=== PATIENT | male | born 1950 | race Caucasian/White ===

== ENCOUNTER 2020-01-16 18:09 | Emergency (ER) | payer OTHER, SELFPAY ==
--- NOTE | 2020-01-16 18:18 | ED.GENADULT ---
HPI - General Adult General Chief complaint: Skin/Abscess/Foreign Body Stated complaint: insect bite Time Seen by Provider: 01/16/20 18:24 Source: patient and RN notes reviewed Mode of arrival: ambulatory Limitations: no limitations History of Present Illness HPI narrative: This is a 69 years old male presents to the office for an evaluation of insect bite while he was sitting outside yesterday. He felt a bite; but he did not see what it was. He thinks it is either the mosquito or gnats that got him. He was not outside in the [place] or on the grass. TD is unknown. He has been taking a couple doses of benedryl today. Related Data Allergies Allergy/AdvReac Type Severity Reaction Status Date / Time Sulfa (Sulfonamide Allergy Unknown Rash Verified 01/16/20 18:25 Antibiotics) Review of Systems Review of Systems: Narrative: CONSTITUTIONAL: Denies fever or feeling ill ENT: Denies congestion CARDIOVASCULAR: Denies chest pain RESPIRATORY: Denies dyspnea GASTROINTESTINAL: Denies nausea, vomiting SKIN:Reports left forearm insect bite with redness and swelling MUSCULOSKELETAL: Denies acute back pain NEUROLOGIC: Denies lightheaded PMFSH Past Medical History Medical History (Updated 01/16/20 @ 18:38 by MEDINA Norris) Lumbar spondylosis Memory loss Surgical History Surgical History (Updated 01/16/20 @ 18:25 by MEDINA Norris) Hx of appendectomy Social History Social History Smoking status: Never smoker Alcohol intake: never Gender identity (if verbalized by the patient): Male Comments At time of signature, I agree with nursing past medical, surgical, social and family history. There is no relevant family history pertinent to the presenting complaint. Exam Narrative: Exam Narrative: GENERAL: This is a well-nourished, well-developed patient, in no apparent distress. CARDIOVASCULAR: Regular rate and rhythm without murmurs, gallops, or rubs. RESPIRATORY: Clear to auscultation. Breath sounds equal bilaterally. No wheezes, rales, or rhonchi. GASTROINTESTINAL: Abdomen soft, non-tender, nondistended. Bowel sounds are active. No guarding. NEURO: awake, alert, and oriented to person, place and time. There were no obvious focal neurologic abnormalities. Steady gait EXTREMITIES: Normal range of motion. Left anterior forearm noted a localize erythema, edematous, blanchable without obvious bite harriet or secondary cellulitis. No lymphadenitis. [place] Coma Scale Eye Opening: Spontaneous 4 [place] Coma Scale Motor: Obeys Commands 6 [place] Coma Scale Verbal: Oriented 5 Course Vital Signs Vital signs: Vital Signs Temperature 97.6 F 01/16/20 18:19 Pulse Rate 70 01/16/20 18:19 Respiratory Rate 16 01/16/20 18:19 Blood Pressure 145/92 H 01/16/20 18:19 Pulse Oximetry 99 01/16/20 18:19 Temperature 97.6 F 01/16/20 18:19 Pulse Rate 70 01/16/20 18:19 Respiratory Rate 16 01/16/20 18:19 Blood Pressure 145/92 H 01/16/20 18:19 Pulse Oximetry 99 01/16/20 18:19 Medical Decision Making MDM Narrative Medical decision making narrative: Patient is Urgent/Emergent. BP elevated due to current condition w/o HTN in PMH (Measure Met). Discharge instructions reviewed with patient, as well as provided in writing per nursing staff. The instructions also include specific and strict return/GO TO THE ER as well as f/u information. All questions have been answered, and the patient deny any further questions with discharge and discharge plan. Differential Diagnosis Differential Diagnosis: Contact/allergic dermatitis, atopic dermatitis, psoriasis, eczema, cellulitis, tinea, erythema multiforme Vital Signs Vital Signs: Vital Signs Temperature 97.6 F 01/16/20 18:19 Pulse Rate 70 01/16/20 18:19 Respiratory Rate 16 01/16/20 18:19 Blood Pressure 145/92 H 01/16/20 18:19 Pulse Oximetry 99 01/16/20 18:19 Temperature
[2020-01-16 18:19] VITALS: BP 145/92; PULSE 70; RESP 16; TEMP 36.4; O2SAT 99
[2020-01-16] MEDS: TETANUS,DIPHTHERIA,AC PERTUSSIS ADULT (0.5 ML) BOOSTRIX IM (18:38)
== END 2020-01-16 18:53 | disposition home or self-care (01) ==
PROVIDERS: Emergency Provider Nurse Practitioner; PCP Family Medicine
DX: S50.862A Insect bite (nonvenomous) of left forearm, initial encounter (principal); W57.XXXA Bitten or stung by nonvenomous insect and other nonvenomous arthropods, initial encounter; Z23 Encounter for immunization
CPT/HCPCS: 90471; 90715; 99213; G0463

== ENCOUNTER 2021-01-06 08:08 | Emergency (ER) | payer OTHER, SELFPAY ==
[2021-01-06 08:25] VITALS: BP 151/75; PULSE 73; RESP 16; TEMP 36.1; O2SAT 98
--- NOTE | 2021-01-06 08:45 | ED.GENADULT ---
HPI - General Adult General Chief complaint: Eye Problems Stated complaint: right eye swollen Time Seen by Provider: 01/06/21 08:16 Source: patient Mode of arrival: ambulatory Limitations: no limitations History of Present Illness HPI narrative: Patient presents for evaluation of swelling to the right upper eyelid since yesterday. He indicates he was fishing 3 days ago and experienced some gnat bites to the left side of the face. He had some left-sided facial swelling but that resolved with some Benadryl. Yesterday he was fishing again and states he was bit by another gnat in right upper eyelid. He developed swelling to the right upper eyelid thereafter. Took some low dose Benadryl last evening, but has not taken any today. Denies any visual disturbance. No fever, chills, nausea, vomiting. No drainage from the right eye. He is not diabetic. Related Data Home Medications Medication Instructions Recorded Confirmed ciprofloxacin HCl 1 mg PO BID 01/06/21 01/06/21 Allergies Allergy/AdvReac Type Severity Reaction Status Date / Time Sulfa (Sulfonamide Allergy Unknown Rash Verified 01/06/21 08:49 Antibiotics) Review of Systems Review of Systems: Narrative: CONSTITUTIONAL: Denies fever, chills, or sweats. EYES: Reports swelling of the right upper eyelid. Denies visual changes, redness, or discharge. ENT: Denies rhinorrhea, congestion, sore throat, or otalgia. CARDIOVASCULAR: Denies chest pain, palpitations, or edema. RESPIRATORY: Denies cough or dyspnea. GASTROINTESTINAL: Denies abdominal pain, nausea, vomiting, or diarrhea. GENITOURINARY: Denies dysuria or hematuria. SKIN: Denies rash or itching. MUSCULOSKELETAL: Denies back pain, joint pain, or myalgia. NEUROLOGIC: Denies headache, numbness, dizziness, or weakness. PSYCHIATRIC: Denies anxiety or depression. [facility] Past Medical History Medical History BMI 25.0-25.9,adult Colon polyp Lumbar spondylosis Memory loss Surgical History Surgical History Hx of appendectomy Family History Family History Mother No pertinent past medical history Social History Social History Smoking status: Never smoker Alcohol intake: never Gender identity (if verbalized by the patient): Male Exam Narrative: Exam Narrative: GENERAL: Well-appearing, well-nourished, and in no acute distress. HEAD: Normocephalic, atraumatic. EYES: PERRLA and EOMI. Swelling noted to right upper eyelid ENT: Nares clear, no rhinorrhea or epistaxis. Mucous membranes moist. Oropharynx without tonsillar hypertrophy exudate or other lesions. Bilateral TMs pearly abrams nonbulging NECK: Supple. No adenopathy or masses. No carotid bruits or JVD CHEST: Clear to auscultation. No respiratory distress. No wheezes rales or rhonchi HEART: Regular rate and rhythm. No murmur heard. Normal peripheral pulses. ABDOMEN: Soft, nontender, nondistended, normal active bowel sounds. EXTREMITIES: Normal range of motion. No edema. SKIN: Mild erythema noted to the right upper eyelid without associated warmth. Skin is dry, no rash. NEURO: No focal deficits. Alert and oriented x3. PSYCH: Normal mood and affect. Course Course Emergency Course: This is a 70-year-old male who presents with swelling to the right upper eyelid after he was bit by an at yesterday. He is taking some low-dose Benadryl with some improvement in his symptoms or after. His physical exam is consistent with allergic reaction. It does not appear that he has any cellulitis present, as there is no warmth in the area. He was given solumedrol during his visit. Will dc with prednisone and benadryl. Will also cover with keflex in event he develops infectious process. He was advised on importance of returning for wors
[2021-01-06] MEDS: methylPREDNISolone SOD SUCC 125 MG VIAL IM (08:53)
== END 2021-01-06 09:10 | disposition home or self-care (01) ==
PROVIDERS: Emergency Provider Nurse Practitioner
DX: H02.841 Edema of right upper eyelid (principal); T78.49XA Other allergy, initial encounter; W57.XXXA Bitten or stung by nonvenomous insect and other nonvenomous arthropods, initial encounter; M47.816 Spondylosis without myelopathy or radiculopathy, lumbar region
CPT/HCPCS: 96372; 99213; G0463; J2930

== ENCOUNTER 2021-07-11 09:38 | Emergency (ER) | payer OTHER, SELFPAY ==
[2021-07-11 09:55] VITALS: BP 127/81; PULSE 109; RESP 16; TEMP 37.3; O2SAT 98
--- NOTE | 2021-07-11 10:05 | ED.MALEGU ---
HPI - Male Genitourinary General Chief complaint: Urogenital-Male Stated complaint: uti Time Seen by Provider: 07/11/21 10:05 Source: patient Mode of arrival: ambulatory Limitations: no limitations History of Present Illness HPI Narrative: Davis Tse is a 71 yo male with a PMH of hypertension resulting in him self catheterizing himself 2-3 times a day. He noted that his urine became cloudy about 2 days ago, he has been on 2 rounds of Macrobid and recent months and is here for an additional antibiotic. He normally only gets UTIs every couple months with a self-catheterization and sees urologist regularly. No nausea vomiting diarrhea no fever Related Data Allergies Allergy/AdvReac Type Severity Reaction Status Date / Time Sulfa (Sulfonamide Allergy Unknown Rash Verified 01/06/21 08:49 Antibiotics) Review of Systems Review of Systems: CONSTITUTIONAL: Denies fever, chills, sweats. EYES: Denies visual changes, redness, discharge. ENT: Denies rhinorrhea, congestion, sore throat, otalgia. CARDIOVASCULAR: Denies chest pain, palpitations, edema. RESPIRATORY: Denies dyspnea, wheezing, cough GASTROINTESTINAL: Denies abdominal pain, nausea, vomiting, diarrhea. GENITOURINARY: Denies dysuria, hematuria, abnormal discharge-self catheterizing, urine is cloudy SKIN: Denies rash or itching. NEUROLOGIC: Denies numbness, or focal weakness. PSYCHIATRIC: Denies anxiety or depression. PMFSH Past Medical History Medical History BMI 25.0-25.9,adult Colon polyp Lumbar spondylosis Memory loss Urinary retention Surgical History Surgical History Hx of appendectomy Family History Family History Mother No pertinent past medical history Social History Social History Smoking status: Never smoker Alcohol intake: never Gender identity (if verbalized by the patient): Male Comments At time of signature, I agree with nursing past medical, surgical, social and family history. There is no relevant family history pertinent to the presenting complaint. Exam Narrative: GENERAL: This is a well-nourished, well-developed patient, in mild distress. HEAD: normocephalic, atraumatic. EYES: Sclera clear/white. Vision is grossly intact. EARS: External ears normal, . Hearing grossly intact. NOSE: External nose normal without nasal discharge, nares without redness, no rhinorrhea. THROAT: Mucous membranes moist, NECK: Neck supple, CARDIOVASCULAR: Regular rate and rhythm without murmurs, gallops, or rubs. RESPIRATORY: Clear to auscultation. Breath sounds equal bilaterally. No wheezes, rales, or rhonchi. GASTROINTESTINAL: Abdomen soft, SKIN: warm, intact with no suspicious lesions or rash, good texture and turgor. NEURO: awake, alert, and oriented to person, place and time. There were no obvious focal neurologic abnormalities. Steady gait EXTREMITIES: Normal range of motion. BACK: Nontender without deformity Course Course Emergency Course: Patient here due to cloudy urine when self cathing UA shows positive nitrite, 3+ leukocytes, 1+ ketones, 2+ blood, 1+ protein Started on cephalexin 500 mg 1 twice daily x5 days-to call [facility] Tuesday Vital Signs Vital signs: Vital Signs Temperature 99.2 F 07/11/21 09:55 Pulse Rate 109 H 07/11/21 09:55 Respiratory Rate 16 07/11/21 09:55 Blood Pressure 127/81 07/11/21 09:55 Pulse Oximetry 98 07/11/21 09:55 Temperature 99.2 F 07/11/21 09:55 Pulse Rate 109 H 07/11/21 09:55 Respiratory Rate 16 07/11/21 09:55 Blood Pressure 127/81 07/11/21 09:55 Pulse Oximetry 98 07/11/21 09:55 MDM - Male Genitourinary Differential Diagnosis Differential diagnosis: Likely urinary tract infection, urethritis, prostatitis, acute retention of urine and other [place]
== END 2021-07-11 10:12 | disposition home or self-care (01) ==
PROVIDERS: Emergency Provider Nurse Practitioner; PCP Family Medicine
DX: N39.0 Urinary tract infection, site not specified (principal); I10 Essential (primary) hypertension; M47.816 Spondylosis without myelopathy or radiculopathy, lumbar region
CPT/HCPCS: 81003; 87077; 87086; 87088; 87186; 99213; G0463

== ENCOUNTER 2022-04-04 10:08 | Emergency (ER) | payer OTHER, SELFPAY ==
--- NOTE | 2022-04-04 10:10 | ED.MALEGU ---
HPI - Male Genitourinary General Chief complaint: Urogenital-Male Stated complaint: urine irritation Time Seen by Provider: 04/04/22 10:10 Source: patient Mode of arrival: ambulatory Limitations: no limitations History of Present Illness HPI Narrative: Mr. Tse is a 71-year-old male patient presenting to the clinic today with complaints of urine irritation. He reports he self caths. Over the last few days he has had some bladder spasms and urinary symptoms. He thinks he may have a urinary tract infection. He denies any fever or chills. He denies any abdominal pain or back pain Related Data Home Medications Medication Instructions Recorded Confirmed loratadine 10 mg tablet (Claritin) 10 mg PO DAILY 04/04/22 04/04/22 Allergies Allergy/AdvReac Type Severity Reaction Status Date / Time Sulfa (Sulfonamide Allergy Unknown Rash Verified 04/04/22 10:20 Antibiotics) promethazine [From Phenergan] Allergy Other Verified 04/04/22 10:20 Review of Systems Review of Systems: Pertinent positives per HPI. Patient denies any fever, chills, rash, headache, visual changes, dizziness, cough, runny nose, sore throat, shortness of breath, chest pain, palpitations, nausea, vomiting, diarrhea, constipation, or any abdominal pain. PMFSH Past Medical History Medical History BMI 25.0-25.9,adult Colon polyp Lumbar spondylosis Memory loss Neurogenic bladder Recurrent urinary tract infection Urinary retention Surgical History Surgical History Hx of appendectomy Family History Family History Mother No pertinent past medical history Social History Social History Smoking status: Never smoker Alcohol intake: never Gender identity (if verbalized by the patient): Male Comments At the time of my signature, I reviewed and agree with the nursing past medical, surgical, social, and family history. There is no relevant family history pertinent to the patient complaint. Exam Narrative: General: Well-developed, well nourished, in no apparent distress. Head: Normocephalic, atraumatic. Cardio: Regular rate and rhythm, s1 and s2 normal, no murmur appreciated. Resp: Clear to auscultation bilaterally, no rhonchi, rales, wheezing or rubs. Abdomen: Soft, pliable, bowel sounds present in all quadrants, mild-tender to palpation over the suprapubic area, no organomegly, no CVAT tenderness. : Deferred Course Course Emergency Course: Portions of this record may have been created with voice recognition software. Level of Care: Express Care Visit Vital Signs Vital signs: Vital signs reviewed MDM - Male Genitourinary MDM Narrative Medical decision making narrative: At the time of visit patient is resting comfortably on the exam table. Patient self cath for UA today. UA positive for 3+ leukocytes and blood. I suspect patient has a urinary tract infection and will place patient on a prescription for some ciprofloxacin as this has been susceptible to his past culture and sensitivities. Patient has been on Cipro before without any adverse reactions. Supportive measures were discussed with the patient he voiced understanding of discharge instructions and agrees to treatment plan. Differential Diagnosis Differential diagnosis: Likely urinary tract infection and urethritis Discharge Plan Discharge Clinical Impression: Recurrent urinary tract infection Patient Disposition: Home, Self-Care Condition: Stable Instructions: Antibiotic Form, Urinary Tract Infection in Older Adults (ED) Additional Instructions: Take cipro as prescribed. Increase fluids and stay well hydrated Wipe front to back. May use wet wipes. Avoid tub baths If sexually active- pee before and afte
[2022-04-04 10:20] VITALS: BP 136/82; PULSE 95; RESP 18; TEMP 36.2; O2SAT 97
== END 2022-04-04 10:35 | disposition home or self-care (01) ==
LOC: EXPCOLL 10:11
PROVIDERS: Emergency Provider Nurse Practitioner Family
DX: N39.0 Urinary tract infection, site not specified (principal); N31.9 Neuromuscular dysfunction of bladder, unspecified; M47.816 Spondylosis without myelopathy or radiculopathy, lumbar region
CPT/HCPCS: 81003; 87077; 87086; 87186; 99213; G0463

== ENCOUNTER 2022-11-18 08:00 | Outpatient (NON) | payer OTHER, SELFPAY | END 2022-11-18 08:01 | disposition home or self-care (01) | LOC: ANHLAB 11-19 10:31 | PROVIDERS: PCP Family Medicine; Visit Provider Nurse Practitioner | DX: L57.8 Other skin changes due to chronic exposure to nonionizing radiation (principal) | CPT/HCPCS: 88305 ==

== ENCOUNTER 2023-04-23 08:39 | Inpatient (IN) | payer OTHER, SELFPAY ==
[2023-04-23] VITALS (15 sets, daily range): BP systolic 118–139; BP diastolic 65–83; PULSE 52–78; RESP 13–19; TEMP 36.3–36.8; O2SAT 96–100; BMI 24.7
--- NOTE | ~2023-04-23 | XR_ITS ---
EXAMINATION: XR chest 2V DATE: 04/23/2023 09:27 INDICATION: Stroke symptoms TECHNIQUE: Frontal and lateral views of the chest are obtained COMPARISON: None available FINDINGS: The lungs are free of acute opacities. No pleural effusion or pneumothorax. The cardiomedia stinal silhouette is normal. There is mild thoracic spondylosis. IMPRESSION: 1. No acute cardiopulmonary abnormality. Reviewed, dictated and finalized at location A.
--- NOTE | ~2023-04-23 | CT_ITS ---
EXAMINATION: CTA brain carotid DATE: 04/23/2023 11:02 INDICATION: Right upper extremity weakness TECHNIQUE: Computed tomographic angiography (CTA) of the head was performed with 100 mL Omnipaque-350 intravenous contrast. CTA of the neck was performed with intravenous contrast. The dose-length produ ct was 1224.01 mGy-cm. Maximum intensity projection and volume rendered 3D-reconstructions were creat ed by the technologist on a separate workstation. Automated exposure control and iterative reconstruc tion technique were employed. COMPARISON: 0916 hours FINDINGS: HEAD CTA: There is no acute intraparenchymal hemorrhage. No evidence of mass lesion. Again noted is l ow attenuation in the left basal ganglia and guardado radiata. There is mild periventricular and subcor tical hypodensity probably related to small vessel ischemic disease. There is mild prominence of the sulci and ventricles related to cerebral atrophy. Intracranial calcified cerebral atherosclerosis is noted. There are no extra-axial collections. There is no mass effect or midline shift. Changes in the globes are likely from ocular lens surgery. There is a polyp or mucous retention cyst of the left ma xillary sinus. There is no significant stenosis of the basilar artery or posterior cerebral arteries. There is no si gnificant stenosis of the intracranial internal carotid arteries or the anterior or middle cerebral a rteries. The anterior communicating artery and posterior communicating arteries are normal. There is no aneurysm. NECK CTA: The thyroid gland is unremarkable. The submandibular and parotid glands are symmetric. Ther e is no lymphadenopathy. There are no masses identified. The airway is unremarkable. The superior med iastinum is unremarkable. There is mild cervical spondylosis. There is moderate distention of the karime tebral and posterior cervical veins of unclear etiology. There is 0% stenosis of the proximal right internal carotid artery relative to normal distal artery l umen diameter (NASCET criteria). There is 0% stenosis of the proximal left internal carotid artery re lative to normal distal artery lumen diameter. IMPRESSION: 1. Findings consistent with acute infarct in the left basal ganglia and guardado radiata. Normal head C TA. 2. 0% stenosis of the proximal right internal carotid artery relative to normal distal artery lumen d iameter (NASCET criteria). 3. 0% stenosis of the proximal left internal carotid artery relative to normal distal artery lumen di ameter. Reviewed, dictated and finalized at location A. IMPRESSION: 1. Findings consistent with acute infarct in the left basal ganglia and guardado radiata. Normal head CTA. 2. 0% stenosis of the proximal right internal carotid artery relative to normal distal artery lumen diameter (NASCET criteria). 3. 0% stenosis of the proximal left internal carotid artery relative to normal distal artery lumen diameter.
--- NOTE | ~2023-04-23 | CT_ITS ---
EXAMINATION: CT brain wo con INDICATION: Headache COMPARISON: None TECHNIQUE: Standard unenhanced head CT. The dose-length product (DLP) was 605.33 mGy-cm. The mA was a djusted according to patient size. Iterative reconstruction technique was employed. FINDINGS: No acute intraparenchymal hemorrhage. No evidence of mass lesion. There is low attenuation in the left basal ganglia and left guardado radiata. There is mild periventricular and subcortical hypo density probably related to small vessel ischemic disease. There is mild prominence of the sulci and ventricles related to cerebral atrophy. Intracranial calcified cerebral atherosclerosis is noted. No extra-axial collections. No mass effect or midline shift. Changes in the globes are likely from ocula r lens surgery. The visualized sinuses and mastoid air cells are well aerated. IMPRESSION: 1. Findings consistent with acute infarction of the left basal ganglia and guardado radiata. 2. Age related findings. These findings were discussed with Dr. Joe Hernandez MD in the Emergency Department at 0934 hour s on 04/23/2023. Reviewed, dictated and finalized at location A. IMPRESSION: 1. Findings consistent with acute infarction of the left basal ganglia and mishel na radiata. 2. Age related findings. These findings were discussed with Dr. Joe Hernandez MD in the Emergency D epartment at 0934 hours on 04/23/2023.
--- NOTE | ~2023-04-23 | MR_ITS ---
MRI of the brain Clinical History: CVA Technique: Axial and sagittal T1-weighted images were acquired. These were followed by axial T2-weigh bobby, diffusion weighted, gradient, and FLAIR images. Following intravenous administration of 15 cc Mu ltiHance gadolinium, T1-weighted fat-sat imaging was performed in the axial, coronal, and sagittal pl anes. Findings: There is acute to subacute infarct involving the left basal ganglia and left caudate nucleu s, with restricted diffusion and FLAIR hyperintensity. There is hypointensity within the infarct on g radient images, as well as intrinsic T1 hyperintensity within the infarct, consistent with petechial hemorrhage. There are mild background chronic microvascular ischemic changes in the periventricular w navarro matter bilaterally. Ventricles and subarachnoid spaces are unremarkable. Orbits are unremarkable. Paranasal sinuses and m astoid air cells are clear. Major intracranial flow voids appear intact. Sagittal midline structures are intact. There is postcontrast enhancement of the infarct. IMPRESSION: Acute infarct involving left basal ganglia left caudate nucleus, as detailed above, with associated p robable petechial hemorrhage and postcontrast enhancement. Findings correlate with the hypodense lesi on seen on CT scan. Mild background chronic microvascular ischemic changes. Reviewed, dictated and finalized at location M. IMPRESSION: Acute infarct involving left basal ganglia left caudate nucleus, as detailed ab ove, with associated probable petechial hemorrhage and postcontrast enhancement . Findings correlate with the hypodense lesion seen on CT scan. Mild background chronic microvascular ischemic changes.
--- NOTE | 2023-04-23 09:08 | ECG_ITS ---
Measurements Intervals [place] Rate: 62 P: -56 ND: 165 QRS: 47 QRSD: 89 T: 30 QT: 388 QTc: 397 Interpretive Statements ECTOPIC ATRIAL RHYTHM ABNORMAL ECG NO PREVIOUS ECG AVAILABLE FOR COMPARISON Electronically Signed On 04-23-2023 10:16:45 CDT by Sam Arriola D.O.
--- NOTE | 2023-04-23 09:51 | ED.GENADULT ---
HPI - General Adult General Chief complaint: Neuro Symptoms/Deficit Stated complaint: speech changes and slight confusion x8 days Time Seen by Provider: 04/23/23 08:47 History of Present Illness HPI narrative: Patient is a 72-year-old male who presents ER with concern for CVA. 8 days ago patient went back to his computer feeling off and was unable to type accurately with his right hand. 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 He reports he has had some drooling from the right side of his mouth. No history of CVA previously. Family came to town today and is decided he should seek further evaluation. Related Data Home Medications Medication Instructions Recorded Confirmed loratadine 10 mg tablet (Claritin) 10 mg PO PRN PRN allergies 04/04/22 04/23/23 Allergies Allergy/AdvReac Type Severity Reaction Status Date / Time Sulfa (Sulfonamide Allergy Unknown Rash Verified 04/18/23 16:47 Antibiotics) promethazine [From Phenergan] Allergy Other Verified 04/18/23 16:47 Review of Systems Review of Systems: All systems reviewed & are unremarkable except as noted in HPI and below Constitutional: Constitutional: Reports no additional constitutional complaints ENT: Denies dysphagia, Denies nasal congestion and Denies sore throat Comments: Drooling Cardiovascular: Cardiovascular: Denies chest pain, Denies rapid heart rate and Denies radiating jaw, neck or arm pain Respiratory: Respiratory: Denies cough and Denies dyspnea Gastrointestinal: Gastrointestinal: Reports no additional gastrointestinal complaints Musculoskeletal: Musculoskeletal: Reports no additional musculoskeletal complaints Neurologic: Denies syncope, Denies headache(s), Reports focal weakness and Denies numbness [facility] Past Medical History Medical History BMI 25.0-25.9,adult Colon polyp Lumbar spondylosis Memory loss Neurogenic bladder Recurrent urinary tract infection Urinary retention Surgical History Surgical History Hx of appendectomy Family History Family History (Updated 04/23/23 @ 13:01 by Dottie Peck APRN) Mother Bowel obstruction Possibly due to mass, in 50's-60's. Father Cerebrovascular accident Sibling Cerebrovascular accident Heart disease Other No pertinent past medical history Social History Social History (Updated 04/23/23 @ 13:02 by Dottie Peck APRN) Social History: Lives independently with at home. 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 HEAD: Normocephalic, atraumatic. EYES: PERRL and EOMI. ENT: Mucous membranes moist. NECK: Supple. No carotid bruit bilaterally. CHEST: Clear to auscultation. No respiratory distress. HEART: Regular rate and rhythm. No murmur heard. Normal peripheral pulses. ABDOMEN: Soft, nontender, nondistended. EXTREMITIES: Normal range of motion. No edema. SKIN: Warm, dry, no rash. NEURO: Scant weakness right face with smiling. Otherwise no facial asymmetry. Slight dysarthria observed by family and patient. Difficulty with finger-nose testing right upper extremity when compared to left. No lowe
[2023-04-23 10:00] LABS: Basophils Percent Auto 0.9 % (0.2-1.2); Eosinophils Absolute Auto 0.1 K/mm3 (0-0.3); Eosinophils Percent Auto 1.3 % (0-4.4); Hematocrit 41.6 % (42.0-52.0); Hemoglobin 14.4 g/dL (14.0-18.0); Immature Granulocyte Absolute 0.01 K/mm3 (0.00-0.031); Immature Granulocyte Percent A 0.2 % (0-0.5); Lymphocytes Absolute Auto 0.91 K/mm3 (0.9-3.2); Lymphocytes Percent Auto 19.8 % (18.3-44.2); Mean Corpuscular HGB Conc 34.6 g/dl (32-36); Mean Corpuscular Hemoglobin 33.3 pg (26-34); Mean Corpuscular Volume 96.1 fl (80-100); Mean Platelet Volume 11.2 fl (7.4-10.4); Monocytes Absolute Auto 0.5 K/mm3 (0.1-0.6); Neutrophils Absolute Auto 3.1 K/mm3 (1.3-6.7); Neutrophils Percent Auto 67.8 % (45.5-73.1); Platelet Count Result 184 k/mm3 (150-375); Red Blood Count 4.33 M/mm3 (4.6-6.20); Red Cell Distribution Width 12.5 % (11.5-14.5); White Blood Count 4.6 K/mm3 (4.5-10.0)
[2023-04-23] MEDS: ASPIRIN 325 MG TABLET PO (10:00)
[2023-04-23 10:12] LABS: Alanine Aminotransferase 19 U/L (6-50); Albumin Level 3.8 g/dL (3.5-5.1); Alkaline Phosphatase 64 U/L (38-126); Anion Gap 8 mmol/L (8-16); Aspartate Amino Transferase 29 U/L (17-59); Bilirubin,Total 0.8 mg/dL (0.2-1.3); Blood Urea Nitrogen 15 mg/dL (9-20); Calcium 8.6 mg/dL (8.4-10.2); Carbon Dioxide 27 mmol/L (22-30); Chloride 104 mmol/L (98-107); Estimated CRCL calculation 63 ml/min; Estimated Glomerular Filt Rate > 60; Glucose 109 mg/dL (65-110); Potassium 4.1 mmol/L (3.4-5.0); Sodium 139 mmol/L (137-145)
[2023-04-23 10:19] LABS: Prothrombin Time 13.6 Seconds (11.1-14.7)
[2023-04-23 10:20] LABS: Partial Thromboplastin Time 30.1 SECONDS (22.3-36.8)
[2023-04-23 10:31] LABS: Troponin I < 0.012 ng/mL (0.000-0.034)
--- NOTE | 2023-04-23 12:49 | PM.IMHP ---
H&P: HPI History of Present Illness Date/Time: 04/23/23 12:49 Chief Complaint: Hand Weakness Narrative: 72 y/o M with history of neurogenic bladder requiring self-cath presents here with R hand weakness and changes in speech. Patient reports symptom onset of 1 week ago on Sunday 04/15. He reports difficulty typing with right hand, mild difficulty with word finding, and slight slur to speech. Son confirms slight change in speech. Symptom constellation began together around 12 pm. No previous history of CVA. Patient is independent and currently lives at home with his . 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 No assistive devices for mobility are required. Review of Systems Review of Systems: All systems reviewed & are unremarkable except as noted in HPI and below PMFSH Past Medical History Medical History BMI 25.0-25.9,adult Colon polyp Lumbar spondylosis Memory loss Neurogenic bladder Recurrent urinary tract infection Urinary retention Surgical History Surgical History Hx of appendectomy Family History Family History (Updated 04/23/23 @ 13:01 by Dottie Peck APRN) Mother Bowel obstruction Possibly due to mass, in 50's-60's. Father Cerebrovascular accident Sibling Cerebrovascular accident Heart disease Other No pertinent past medical history Social History Social History (Updated 04/23/23 @ 13:02 by Dottie Peck APRN) Social History: Lives independently with at home. 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[employer] Gender identity (if verbalized by the patient): Male Spiritual care concerns: No Meds Home Medications and Allergies Home Medications Medication Instructions Recorded Confirmed Type loratadine 10 mg tablet (Claritin) 10 mg PO PRN PRN allergies 04/04/22 04/23/23 History Allergies Allergy/AdvReac Type Severity Reaction Status Date / Time Sulfa (Sulfonamide Allergy Unknown Rash Verified 04/18/23 16:47 Antibiotics) promethazine [From Phenergan] Allergy Other Verified 04/18/23 16:47 Vital Signs Vital Signs - 24 hr 04/23/23 08:40 04/23/23 09:47 04/23/23 09:59 Temperature 98.3 F Pulse Rate 78 70 66 Respiratory Rate 16 16 Blood Pressure 139/70 128/77 Pulse Oximetry 98 97 Oxygen Delivery Room Air 04/23/23 10:29 04/23/23 10:30 04/23/23 10:31 Temperature Pulse Rate 64 54 L 58 L Respiratory Rate 19 19 17 Blood Pressure 131/79 Pulse Oximetry 99 96 96 Oxygen Delivery 04/23/23 10:45 04/23/23 10:46 04/23/23 11:03 Temperature Pulse Rate 52 L 56 L Respiratory Rate 13 17 Blood Pressure 118/65 Pulse Oximetry 98 97 100 Oxygen Delivery 04/23/23 11:33 04/23/23 11:47 04/23/23 12:00 Temperature Pulse Rate Respiratory Rate 16 Blood Pressure 119/83 Pulse Oximetry 98 97 98 Oxygen Delivery Exam Const: General: comfortable and no acute distress HENMT: Face/Nose/Sinus: Normal nares present Mouth: Yes moist mucous membranes Eyes: Sclera: sclerae normal EOM: EOMs intact bilaterally Other: 2 mm and reactive to light. No nystagmus. Tear drop shape to L pupil, with taper towards 3 o'clock. Resp: Effort & Inspection: normal respiratory effort Auscultation: clear to auscultation bilaterally Cardio: Rate: regular rate Rhythm: regular rhythm Other: Normal S1 and S2. GI:
--- NOTE | 2023-04-23 14:19 | PCPTNOTE ---
Patient going down for an MRI, will evaluate later.
--- NOTE | 2023-04-23 15:09 | PCSTNOTE ---
Orders received for bedside swallowing evaluation, patient down for MRI. Will be evaluated tomorrow.
[2023-04-23] MEDS: CLOPIDOGREL BISULFATE 75 MG TABLET PO (15:52)
[2023-04-23] MEDS: ATORVASTATIN 40 MG TABLET PO (15:52)
[2023-04-23 18:31] LABS: Appearance Urine Clear (Clear); Bacteria Urine 4+ /hpf; Bilirubin Urine Negative (Negative); Blood Urine Negative (Negative); Color Urine Yellow (Yellow); Glucose Urine UA Negative (Negative); Ketones Urine Negative (Negative); Leukocyte Esterase Ur Negative LEU/UL (Negative); Need Manual Microscopic Reviewed; Nitrate Urine Positive (Negative); Non Pathogenic Casts 0-2; Protein Urine Negative (Negative); RBC Urine 0-2 /hpf (0-2); Squamous Epithelial Cell Urine None seen /hpf (Few)
[2023-04-23 18:33] LABS: Specific Grav Ur 1.049 (1.001-1.035)
[2023-04-23 18:34] LABS: Add Urine Microscopic? YES
[2023-04-24] VITALS (9 sets, daily range): BP systolic 119–143; BP diastolic 72–73; PULSE 47–73; RESP 14–16; TEMP 36.3–37; O2SAT 96–99
[2023-04-24 06:53] LABS: Hematocrit 43.2 % (42.0-52.0); Hemoglobin 14.6 g/dL (14.0-18.0); Mean Corpuscular HGB Conc 33.8 g/dl (32-36); Mean Corpuscular Hemoglobin 33.3 pg (26-34); Mean Corpuscular Volume 98.4 fl (80-100); Mean Platelet Volume 11.2 fl (7.4-10.4); Platelet Count Result 186 k/mm3 (150-375); Red Blood Count 4.39 M/mm3 (4.6-6.20); Red Cell Distribution Width 12.5 % (11.5-14.5); White Blood Count 5.7 K/mm3 (4.5-10.0)
[2023-04-24 07:04] LABS: Anion Gap 9 mmol/L (8-16); Blood Urea Nitrogen 14 mg/dL (9-20); Calcium 8.5 mg/dL (8.4-10.2); Carbon Dioxide 24 mmol/L (22-30); Chloride 104 mmol/L (98-107); Cholesterol 155 mg/dL (0-200); Estimated CRCL calculation 71 ml/min; Estimated Glomerular Filt Rate > 60; Glucose 97 mg/dL (65-110); HDL Direct 47 mg/dL; Potassium 4.1 mmol/L (3.4-5.0); Sodium 137 mmol/L (137-145); Triglycerides 60 mg/dL (<150)
[2023-04-24 07:14] LABS: LDL Cholesterol Direct 80 mg/dL
--- NOTE | 2023-04-24 07:56 | PM.IMPN ---
Progress Note: A&P Assessment and Plan (1) CVA (cerebral vascular accident): Code(s): I63.9 - Cerebral infarction, unspecified Status: Acute Assessment and Plan: Acute CVA New deficits on R started on 04/15 at 12pm: dysarthria and right hand weakness fine motor function POA CTA shows new, acute CVA of the left basal ganglia and guardado radiata. -admission for observation and telemetry -not candidate for thrombolytics due to timeframe and thrombectomy due to occlusion not being large vessel -CXR negative -CTA - 0% stenosis bilaterally of internal carotid arteries, new CVA -Neurology consulted - Lyle HARTMAN -Brain MRI w/wo ordered, pending -Echo ordered, pending -neuro checks Q4 -heart healthy diet - passed bedside swallow -speech/swallow eval -PT/OT to eval and treat -monitor daily labs, lipid panel, A1C -up ad kym. -Start Atorvastatin 40 mg PO -Start Plavix 75 mg PO, 30 day event monitoring at discharge -Start ASA 81 mg -Zofran PRN for nausea -Pain PRN Percocet PO for pain rated 4-6 Acetaminophen PO for pain rated 1-4 Weakness and dysarthria have resolved (2) Neurogenic bladder: Code(s): N31.9 - Neuromuscular dysfunction of bladder, unspecified Status: Acute (3) Complicated UTI (urinary tract infection): Code(s): N39.0 - Urinary tract infection, site not specified Status: Acute Assessment and Plan: Patient has neurogenic brighter Chronic and requiring self-cath, -UA/UC ordered UA shows pyuria white blood cell 10 to 20, 4+ bacteria Start ceftriaxone IV 1 g IV daily Plan Chronic Conditions: -Neurogenic Bladder: see above -Seasonal Allergies: continue daily Claritin Full Code Heart Healthy Diet DVT prophylaxis: SCDs and Lovenox 40 mg Subjective Date/time seen: 04/24/23 07:56 Interval history: I saw exam patient today. Patient states weakness of right arm has resolved, patient denies vision change, difficulty swallowing or choking when patient eats or drink Exam Narrative: GENERAL: Pleasant, in no acute distress. Well-nourished. - EYES: EOMI. Anicteric. - HENT: Moist mucous membranes. - LUNGS: Clear to auscultation bilaterally, no wheezing, rhonchi, or rales. - CARDIOVASCULAR: Regular rate and rhythm. No murmur. No JVD. - ABDOMEN: Soft, non-tender and non-distended. No palpable masses. - EXTREMITIES: No edema. Peripheral pulses 2+. Non-tender. - NEUROLOGIC: No focal neurological deficits. CN II-XII grossly intact. - PSYCHIATRIC: Awake, Alert and oriented x 3. Appropriate mood and affect. - SKIN: No rashes or lesions. Warm. - LYMPH: No cervical lymphadenopathy. Objective Data Vital Signs Vital Signs: Vital Signs - 24 hr 04/23/23 08:40 04/23/23 09:47 04/23/23 09:59 Temperature 98.3 F Pulse Rate 78 70 66 Respiratory Rate 16 16 Blood Pressure 139/70 128/77 Pulse Oximetry 98 97 Oxygen Delivery Room Air 04/23/23 10:29 04/23/23 10:30 04/23/23 10:31 Temperature Pulse Rate 64 54 L 58 L Respiratory Rate 19 19 17 Blood Pressure 131/79 Pulse Oximetry 99 96 96 Oxygen Delivery 04/23/23 10:45 04/23/23 10:46 04/23/23 11:03 Temperature Pulse Rate 52 L 56 L Respiratory Rate 13 17 Blood Pressure 118/65 Pulse Oximetry 98 97 100 Oxygen Delivery 04/23/23 11:33 04/23/23 11:47 04/23/23 12:00 Temperature Pulse Rate Respiratory Rate 16 Blood Pressure 119/83 Pulse Oximetry 98 97 98 Oxygen Delivery 04/23/23 13:32 04/23/23 15:26 04/23/23 13:22 Temperature 97.6 F Pulse Rate 66 Respiratory Rate 18 Blood Pressure 135/78 Pulse Oximetry 100 Oxygen Delivery Room Air Room Air 04/23/23 22:00 04/23/23 20:00 04/24/23 00:00 Temperature 97.3 F L Pulse Rate 57 L 58 L 47 L Respiratory Rate 14 Blood Pressure 132/75 Pulse Oximetry 99 Oxygen Delivery 04/24/23 05:47 04/24/23 04:00 Temperature 98.6 F Pulse Rate 54 L 52 L Respiratory Rate 14 Bloo
[2023-04-24] MEDS: ENOXAPARIN 40 MG/0.4 ML SYRINGE SUB-Q (08:28)
[2023-04-24] MEDS: ASPIRIN 81 MG ENTERIC TABLET PO (08:29)
[2023-04-24] MEDS: CLOPIDOGREL BISULFATE 75 MG TABLET PO (08:29)
[2023-04-24] MEDS: ATORVASTATIN 40 MG TABLET PO (08:29)
[2023-04-24 09:57] LABS: Hemoglobin A1C 5.1 % (<5.7)
--- NOTE | 2023-04-24 10:23 | WPDNEURCNPN ---
Assessment and Plan Assessment and plan (1) Acute ischemic stroke: Code(s): I63.9 - Cerebral infarction, unspecified Status: Acute Plan Davis Tse is a 72 year old male with no significant past medical history presenting for evaluation of stroke-like symptoms of right sided weakness. He was found to have acute stroke in the left basal ganglia. Distribution of infarct is more suggestive of small vessel stroke, although patient does not have a history of HTN and has not been hypertensive during this admission. No evidence of intracranial or extracranial stenosis. At this point, seems to be cryptogenic in etiology. May need more invasive cardiac testing depending on if the surface echo shows anything. - Agree with Aspirin 81mg daily - Ok to add Plavix 75mg daily x 3 weeks - Continue Lipitor 40mg daily (goal LDL <70) - Surface echocardiogram is pending -- if unrevealing, consult Cardiology for possible DANII/Loop Consult date: 04/24/23 Time Seen: 10:23 Reason for consult: Stroke HPI: Davis Tse is a 72 year old male with no significant past medical history presenting for evaluation of stroke-like symptoms. Patient started having difficulty with word finding and typing with his right hand on Sunday 04/15. He also reported some slurring of his speech. 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 Patient was prompted to seek evaluation by his son. He presented to [facility] ED yesterday where his blood pressure was mostly in the 130s, and not any higher. He does not take any blood pressure medications. He was notably week on the right side. He was not a candidate for tPA due to being outside window of treatment. CT head showed subacute changes suggestive of infract in the left basal ganglia. CTA brain/carotid was normal. MRI brain confirmed acute infarction in the left basal ganglia. He has been started on Aspirin and Plavix. His LDL is 80 and A1c is within normal range. He has been started on Lipitor 40mg daily. EKG showed ectopic atrial rhythm. Patient has previously been healthy and was not taking any prescription medications. Patient reports some coordination issues with the right hand but otherwise feeling well. Family feels that speech is slightly abnormal still. Patient otherwise does not have any complaints. Review of Systems Constitutional: Constitutional: Denies chills, Denies fever(s) and Denies weight loss Eyes: Eyes: Denies diplopia and Denies loss of vision ENT: Denies dizziness, Denies hearing loss and Denies tinnitus Cardiovascular: Cardiovascular: Denies chest pain, Denies syncope and Denies dyspnea Respiratory: Respiratory: Denies cough, Denies dyspnea and Denies wheezing Gastrointestinal: Gastrointestinal: Denies abdominal pain, Denies change in bowel habits and Denies vomiting Genitourinary: Genitourinary: Denies urinary incontinence Musculoskeletal: Musculoskeletal: Denies arthralgias and Denies joint swelling Integumentary/Breasts: Skin/Breast: Denies new lesions and Denies rash Neurologic: Reports as per HPI, Denies dizziness, Denies syncope and Denies loss of vision Psychiatric: Psychiatric: Denies anxiety and Denies depression Endocrine: Endocrine: Denies cold intolerance and Denies heat intolerance Hematologic/Lymphatic: Hematologic/Lymphatic: Denies easy bleeding and Denies easy bruising Allergic/Immunologic: Allergic/Immunologic: Denies no additional allergic/immunologic complaints and Denies wheezing PMFSH Past Medical History Medical History BMI 25.0-25.9,adult Colon polyp Lumbar spondylosis Memory loss Neurogenic bladder Recurrent urinary tract infection Urinary retention Surgical History Surgical History Hx of appendectomy Family History Family History Mother Bowel obstruction Possibly due to ma
--- NOTE | 2023-04-24 12:19 | PCSTNOTE ---
Language and Bedside swallowing evaluation completed. Patient sitting upright in chair at bedside. Cursory oral peripheral examination completed, results within normal limits. Trials of thin liquid by cup and straw and solid texture by hand were given, swallowing within normal limits. No signs of aspiration or other chewing or swallowing difficulty. Please note that silent aspiration cannot be ruled out at bedside and can be evaluated with a modified barium swallow study. Language expression and comprehension evaluated using Expanse. Verbal expression within normal limits. Minimal deficits noted in complex auditory comprehension. Discussed with MD and patient. Recommended that patient return to his routine and monitor himself for any changes he notes in his ability to comprehend spoken or written language and to report to his MD. Outpatient speech therapy may be helpful, but not recommending at this time due to minimal measurable language comprehension deficit. Thank you for the referral of this patient.
--- NOTE | 2023-04-24 19:29 | PC.NURSE ---
Pt had family at bedside. Pt assessment WNL. Pt denies any pain. Pt has been monitored for any changes in status.
[2023-04-25] VITALS (9 sets, daily range): BP systolic 125–146; BP diastolic 72–81; PULSE 46–78; RESP 16–18; TEMP 36.3–36.9; O2SAT 98–99
--- NOTE | 2023-04-25 06:00 | ECHO_ITS ---
Patient Info Name: Davis Tse Age: 73 years : 1950 Gender: Male Ht: 69 in Wt: 167 lbs BSA: 1.93 m2 HR: 59 bpm BP: 125 / 80 mmHg Heart Rhythm: Sinus Rhythm Technical Quality: Fair Exam Date: 04/25/2023 12:57 PM Exam Location: [facility] Card Pulmonary Patient Status: Inpatient Admit Date: 04/24/2023 Staff Ordering Physician: Joe Hernandez MD [employer] Teacher: Catrina Akers RDCS Attending Provider: Caden Coombs MD Referring Physician: David CHARLES; Exam Type: CA echo doppler color flow Study Info Indications - cva Complete two-dimensional, color flow and Doppler transthoracic echocardiogram is performed. Summary 1. Complete two-dimensional, color flow and Doppler transthoracic echocardiogram is performed. 2. Left ventricular chamber dimension is normal. 3. Left ventricular systolic function is normal, estimated at 60-65%. 4. The left ventricular diastolic function is grade I diastolic dysfunction. 5. E/e' 10 is mildly elevated. 6. There is mild aortic valve sclerosis. 7. There is trace tricuspid valve regurgitation. 8. No pulmonary hypertension, estimated pulmonary arterial systolic pressure is 27 mmHg. Left Ventricle E/e' 10 is mildly elevated. Left ventricular chamber dimension is normal. Left ventricular systolic function is normal, estimated at 60-65%. The left ventricular diastolic function is grade I diastolic dysfunction. Right Ventricle Right ventricular systolic function is normal and with normal TAPSE 2.0 cm. Right ventricular chamber dimension is normal. Left Atria Left atrial chamber dimension is normal. Right Atria Right atrial chamber dimension is normal. Aortic Valve The aortic valve is trileaflet. There is mild aortic valve sclerosis. There is no aortic valve stenosis. There is no aortic valve regurgitation. Pulmonic Valve There is no pulmonic regurgitation. Mitral Valve There is no mitral valve stenosis. There is no mitral valve regurgitation. Tricuspid Valve There is trace tricuspid valve regurgitation. No pulmonary hypertension, estimated pulmonary arterial systolic pressure is 27 mmHg. Pericardium/Pleural There is no pericardial effusion. Inferior Vena Cava Normal inferior vena cava with >50% collapse upon inspiration consistent with normal right atrial pressure, 5 mmHg. Aorta The aortic root size at the sinus of Valsalva is normal. Left Ventricular Outflow Tract Name Value Normal LVOT 2D LVOT Diameter 2.0 cm LVOT Doppler LVOT Peak Gradient 7 mmHg LVOT Mean Gradient 3 mmHg LVOT VTI 24 cm LVOT VTI/AV VTI Ratio 0.9 LVOT Stroke Volume 75 ml LVOT CO 5.4 l/min LVOT CI 2.8 l/min/m2 Pulmonic Valve Name Value Normal RVOT Doppler RVOT Peak Gradient 3 mmHg
[2023-04-25] MEDS: CLOPIDOGREL BISULFATE 75 MG TABLET PO (08:13)
[2023-04-25] MEDS: ATORVASTATIN 40 MG TABLET PO (08:13)
--- NOTE | 2023-04-25 08:14 | PM.IMPN ---
Progress Note: A&P Assessment and Plan (1) CVA (cerebral vascular accident): Code(s): I63.9 - Cerebral infarction, unspecified Status: Acute Assessment and Plan: Acute CVA New deficits on R started on 04/15 at 12pm: dysarthria and right hand weakness fine motor function POA CTA shows new, acute CVA of the left basal ganglia and guardado radiata. -admission for observation and telemetry -not candidate for thrombolytics due to timeframe and thrombectomy due to occlusion not being large vessel -CXR negative -CTA - 0% stenosis bilaterally of internal carotid arteries, new CVA -Neurology consulted - Lyle HARTMAN -Brain MRI w/wo ordered, pending -Echo ordered, pending -neuro checks Q4 -heart healthy diet - passed bedside swallow -speech/swallow eval -PT/OT to eval and treat -monitor daily labs, lipid panel, A1C -up ad kym. -Start Atorvastatin 40 mg PO -Start Plavix 75 mg PO, 30 day event monitoring at discharge -Start ASA 81 mg -Zofran PRN for nausea -Pain PRN Percocet PO for pain rated 4-6 Acetaminophen PO for pain rated 1-4 Weakness and dysarthria have resolved Appreciate neurology's consultation, further workup based on echocardiogram study (2) Neurogenic bladder: Code(s): N31.9 - Neuromuscular dysfunction of bladder, unspecified Status: Acute (3) Complicated UTI (urinary tract infection): Code(s): N39.0 - Urinary tract infection, site not specified Status: Acute Assessment and Plan: Patient has neurogenic brighter Chronic and requiring self-cath, -UA/UC ordered UA shows pyuria white blood cell 10 to 20, 4+ bacteria Start ceftriaxone IV 1 g IV daily Plan Chronic Conditions: -Neurogenic Bladder: see above -Seasonal Allergies: continue daily Claritin Full Code Heart Healthy Diet DVT prophylaxis: SCDs and Lovenox 40 mg Subjective Date/time seen: 04/25/23 08:14 Interval history: I saw exam patient today. Patient denies new focal weakness, patient also denies vision change, difficulty swallowing or choking when patient eats or drink Exam Narrative: GENERAL: Pleasant, in no acute distress. Well-nourished. - EYES: EOMI. Anicteric. - HENT: Moist mucous membranes. - LUNGS: Clear to auscultation bilaterally, no wheezing, rhonchi, or rales. - CARDIOVASCULAR: Regular rate and rhythm. No murmur. No JVD. - ABDOMEN: Soft, non-tender and non-distended. No palpable masses. - EXTREMITIES: No edema. Peripheral pulses 2+. Non-tender. - NEUROLOGIC: No focal neurological deficits. CN II-XII grossly intact. - PSYCHIATRIC: Awake, Alert and oriented x 3. Appropriate mood and affect. - SKIN: No rashes or lesions. Warm. - LYMPH: No cervical lymphadenopathy. Objective Data Vital Signs Vital Signs: Vital Signs - 24 hr 04/24/23 09:15 04/24/23 08:29 04/24/23 12:43 Temperature Pulse Rate 64 Respiratory Rate Blood Pressure Pulse Oximetry 98 Oxygen Delivery Room Air Room Air 04/24/23 14:00 04/24/23 16:01 04/24/23 20:00 Temperature 98.1 F Pulse Rate 72 71 Respiratory Rate 16 Blood Pressure 143/73 H Pulse Oximetry 99 Oxygen Delivery Room Air 04/24/23 20:40 04/25/23 00:00 04/25/23 04:07 Temperature 97.4 F L 97.3 F L Pulse Rate 73 46 L 59 L Respiratory Rate 16 16 Blood Pressure 119/72 125/80 Pulse Oximetry 96 99 Oxygen Delivery 04/25/23 04:00 Temperature Pulse Rate 52 L Respiratory Rate Blood Pressure Pulse Oximetry Oxygen Delivery Intake/Output Intake/Output: Intake & Output 04/22/23 04/23/23 04/24/23 04/25/23 23:59 23:59 23:59 23:59 Intake Total 220 1680 Output Total 500 Balance -280 1680 Meds/Results Medications: Active Medications Generic Name Dose Route Start Last Admin Trade Name Freq PRN Reason Stop Dose Admin Acetaminophen 325 mg 04/23/23 14:44 Acetaminophen 325 Mg Tablet PO Q6H PRN Mild Pain (1-3) or Fever Hydrocodone Bitart/Acet
[2023-04-25] MEDS: ENOXAPARIN 40 MG/0.4 ML SYRINGE SUB-Q (08:15)
[2023-04-25] MEDS: ASPIRIN 81 MG ENTERIC TABLET PO (08:15)
[2023-04-26] VITALS (9 sets, daily range): BP systolic 129–133; BP diastolic 67–76; PULSE 48–68; RESP 16–20; TEMP 35.9–36.4; O2SAT 98–99
--- NOTE | 2023-04-26 08:38 | PM.IMPN ---
Progress Note: A&P Assessment and Plan (1) CVA (cerebral vascular accident): Code(s): I63.9 - Cerebral infarction, unspecified Status: Acute Assessment and Plan: Acute CVA New deficits on R started on 04/15 at 12pm: dysarthria and right hand weakness fine motor function POA CTA shows new, acute CVA of the left basal ganglia and guardado radiata. -admission for observation and telemetry -not candidate for thrombolytics due to timeframe and thrombectomy due to occlusion not being large vessel -CXR negative -CTA - 0% stenosis bilaterally of internal carotid arteries, new CVA -Neurology consulted - Lyle HARTMAN -Brain MRI w/wo ordered, pending -Echo ordered, pending -neuro checks Q4 -heart healthy diet - passed bedside swallow -speech/swallow eval -PT/OT to eval and treat -monitor daily labs, lipid panel, A1C -up ad kym. -Start Atorvastatin 40 mg PO -Start Plavix 75 mg PO, 30 day event monitoring at discharge -Start ASA 81 mg -Zofran PRN for nausea -Pain PRN Percocet PO for pain rated 4-6 Acetaminophen PO for pain rated 1-4 Weakness and dysarthria have resolved Appreciate neurology's consultation, further workup based on echocardiogram study consult vocational technical education teacher for possible DANII and loop recorder per Dr Alvarenga recommendation (2) Neurogenic bladder: Code(s): N31.9 - Neuromuscular dysfunction of bladder, unspecified Status: Acute (3) Complicated UTI (urinary tract infection): Code(s): N39.0 - Urinary tract infection, site not specified Status: Acute Assessment and Plan: Patient has neurogenic brighter Chronic and requiring self-cath, -UA/UC ordered UA shows pyuria white blood cell 10 to 20, 4+ bacteria Start ceftriaxone IV 1 g IV daily Plan Chronic Conditions: -Neurogenic Bladder: see above -Seasonal Allergies: continue daily Claritin Full Code Heart Healthy Diet DVT prophylaxis: SCDs and Lovenox 40 mg Subjective Date/time seen: 04/26/23 08:38 Interval history: I saw exam patient today. Patient denies new focal weakness, patient also denies vision change, difficulty swallowing or choking when patient eats or drink Exam Narrative: GENERAL: Pleasant, in no acute distress. Well-nourished. - EYES: EOMI. Anicteric. - HENT: Moist mucous membranes. - LUNGS: Clear to auscultation bilaterally, no wheezing, rhonchi, or rales. - CARDIOVASCULAR: Regular rate and rhythm. No murmur. No JVD. - ABDOMEN: Soft, non-tender and non-distended. No palpable masses. - EXTREMITIES: No edema. Peripheral pulses 2+. Non-tender. - NEUROLOGIC: No focal neurological deficits. CN II-XII grossly intact. - PSYCHIATRIC: Awake, Alert and oriented x 3. Appropriate mood and affect. - SKIN: No rashes or lesions. Warm. - LYMPH: No cervical lymphadenopathy. Objective Data Vital Signs Vital Signs: Vital Signs - 24 hr 04/25/23 14:00 04/25/23 12:00 04/25/23 16:00 Temperature 97.4 F L Pulse Rate 78 75 73 Respiratory Rate 18 Blood Pressure 146/72 H Pulse Oximetry 98 Oxygen Delivery 04/25/23 22:00 04/25/23 20:00 04/25/23 20:00 Temperature 98.5 F Pulse Rate 57 L 54 L Respiratory Rate 18 Blood Pressure 144/81 H Pulse Oximetry 99 Oxygen Delivery Room Air 04/26/23 00:00 04/26/23 04:00 04/26/23 06:00 Temperature 97.5 F L Pulse Rate 48 L 48 L 66 Respiratory Rate 16 Blood Pressure 129/76 Pulse Oximetry 99 Oxygen Delivery Intake/Output Intake/Output: Intake & Output 04/23/23 04/24/23 04/25/23 04/26/23 23:59 23:59 23:59 23:59 Intake Total 220 1730 255 300 Output Total 500 Balance -280 1730 255 300 Meds/Results Medications: Active Medications Generic Name Dose Route Start Last Admin Trade Name Freq PRN Reason Stop Dose Admin Acetaminophen 325 mg 04/23/23 14:44 Acetaminophen 325 Mg Tablet PO Q6H PRN Mild Pain (1-3) or Fever Hydrocodone Bitart/Acetaminophen 1 tab 04/23/23 10:1
[2023-04-26] MEDS: ASPIRIN 81 MG ENTERIC TABLET PO (09:02)
[2023-04-26] MEDS: ENOXAPARIN 40 MG/0.4 ML SYRINGE SUB-Q (09:02)
[2023-04-26] MEDS: ATORVASTATIN 40 MG TABLET PO (09:02)
[2023-04-26] MEDS: CLOPIDOGREL BISULFATE 75 MG TABLET PO (09:02)
--- NOTE | 2023-04-26 10:06 | WPDNEUROPN ---
Progress Note: A&P Assessment and Plan (1) Acute ischemic stroke: Code(s): I63.9 - Cerebral infarction, unspecified Status: Acute Plan Davis Tse is a 72 year old male with no significant past medical history presenting for evaluation of stroke-like symptoms of right sided weakness. He was found to have acute stroke in the left basal ganglia. Distribution of infarct is more suggestive of small vessel stroke, although patient does not have a history of HTN and has not been hypertensive during this admission. No evidence of intracranial or extracranial stenosis. At this point, seems to be cryptogenic in etiology. Surface echo unrevealing, although bubble study was not ordered for shunt. - Agree with Aspirin 81mg daily - Ok to add Plavix 75mg daily x 3 weeks - Continue Lipitor 40mg daily (goal LDL <70) - Consult Cardiology for possible cardioembolic cause of stroke-- ?DANII/Loop Subjective Date/time seen: 04/26/23 10:06 Interval history: Davis Tse is a 72 year old male with no significant past medical history presenting for evaluation of stroke-like symptoms. Patient started having difficulty with word finding and typing with his right hand on Sunday 04/15. He also reported some slurring of his speech. 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 Patient was prompted to seek evaluation by his son. He presented to [place] ED yesterday where his blood pressure was mostly in the 130s, and not any higher. He does not take any blood pressure medications. He was notably week on the right side. He was not a candidate for tPA due to being outside window of treatment. CT head showed subacute changes suggestive of infract in the left basal ganglia. CTA brain/carotid was normal. MRI brain confirmed acute infarction in the left basal ganglia. He has been started on Aspirin and Plavix. His LDL is 80 and A1c is within normal range. He has been started on Lipitor 40mg daily. EKG showed ectopic atrial rhythm. Patient has previously been healthy and was not taking any prescription medications. Surface echocardiogram showed normal EF. Bubble study not done. Review of Systems Constitutional: Constitutional: Denies chills, Denies fever(s) and Denies weight loss Eyes: Eyes: Denies diplopia and Denies loss of vision ENT: Denies dizziness, Denies hearing loss and Denies tinnitus Cardiovascular: Cardiovascular: Denies chest pain, Denies syncope and Denies dyspnea Respiratory: Respiratory: Denies cough, Denies dyspnea and Denies wheezing Gastrointestinal: Gastrointestinal: Denies abdominal pain, Denies change in bowel habits and Denies vomiting Genitourinary: Genitourinary: Denies urinary incontinence Musculoskeletal: Musculoskeletal: Denies arthralgias and Denies joint swelling Integumentary/Breasts: Skin/Breast: Denies new lesions and Denies rash Neurologic: Reports as per HPI, Denies dizziness, Denies syncope and Denies loss of vision Psychiatric: Psychiatric: Denies anxiety and Denies depression Endocrine: Endocrine: Denies cold intolerance and Denies heat intolerance Hematologic/Lymphatic: Hematologic/Lymphatic: Denies easy bleeding and Denies easy bruising Allergic/Immunologic: Allergic/Immunologic: Denies no additional allergic/immunologic complaints and Denies wheezing Exam Const: General: comfortable and no acute distress HENMT: Mouth: Yes moist mucous membranes Eyes: Pupils: Equal, round and reactive pupils present EOM: EOMs intact bilaterally Resp: Effort & Inspection: normal respiratory effort Skin: General skin exam: normal color Neuro: Other: Pupils equal and reactive bilaterally, EOMI, face symmetric, facial sensation intact, tongue protrudes midline, palate midline. Shoulder shrug normal. Strength 5/5 RUE, 5/5 LUE, 5/5 bilateral lower extremities. Sensation intact throughout. FNF normal bilaterally. Language comprehension and fluency intact. Gait deferred. Extrem: General
[2023-04-27] VITALS: PULSE 59
--- NOTE | 2023-04-27 | ECHO_ITS ---
Patient Info Name: Davis Tse Age: 73 years : 1950 Gender: Male Ht: 69 in Wt: 167 lbs BSA: 1.93 m2 HR: 65 bpm BP: 144 / 77 mmHg Heart Rhythm: Sinus Rhythm Technical Quality: Fair Exam Date: 04/27/2023 12:36 PM Exam Location: [facility] Pulmonary Exam Room: [facility] [place] Patient Status: Inpatient Admit Date: 04/24/2023 Staff Ordering Physician: Marlon Rodriguez MD Assistant Production Editor: Tisha Plaza RDCS Attending Provider: Caden Coombs MD Referring Physician: Jennifer BURNETTE; Exam Type: CA echo limited w bubble study Study Info Indications - CVA Limited two-dimensional transthoracic echocardiogram is performed with agitated saline. Contrast/Agitated Saline Contrast/Ag. Saline: Agitated Saline Amount: 20.00 ml Existing IV Access: Yes IV Access Condition: patent with no signs of infiltration Summary 1. Left ventricular chamber dimension is normal. 2. Left ventricular systolic function is normal, estimated at 60-65%. 3. No evidence for interatrial [id number] shunt with injection of agitated saline with and without Valsalva. Left Ventricle Left ventricular chamber dimension is normal. Left ventricular systolic function is normal, estimated at 60-65%. Atrial Septum No evidence for interatrial [id number] shunt with injection of agitated saline with and without Valsalva. Report Signatures
[2023-04-27 04:00] VITALS: PULSE 52
[2023-04-27 06:00] VITALS: BP 145/77; PULSE 59; RESP 14; TEMP 36.1; O2SAT 96
[2023-04-27 08:00] VITALS: PULSE 71
[2023-04-27] MEDS: CLOPIDOGREL BISULFATE 75 MG TABLET PO (09:42)
[2023-04-27] MEDS: ATORVASTATIN 40 MG TABLET PO (09:42)
[2023-04-27] MEDS: ASPIRIN 81 MG ENTERIC TABLET PO (09:42)
[2023-04-27] MEDS: ENOXAPARIN 40 MG/0.4 ML SYRINGE SUB-Q (09:42)
--- NOTE | 2023-04-27 09:42 | PM.CNCAR ---
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 Patient indicates he would prefer to start less invasive with 30 day employment and claims aide from our office upon discharge today. If that is unremarkable without evidence of atrial fibrillation/flutter, we will then proceed with loop recorder thereafter. We discussed if atrial fibrillation/flutter identified systemic anticoagulation advised to reduce stroke risk. In the absence of a diagnosis of atrial fibrillation/flutter initiate systemic anticoagulation at this time given the circumstances will place the patient at risk for bleeding without a demonstrable the clinical benefit. There is no prior documentation of atrial fibrillation/flutter or symptoms suggestive of such. We discussed at length potential benefit of DANII, albeit limited to the very unlikely presence of left atrial appendage thrombus. With regards to interatrial shunt, I strongly recommend repeat limited echo with bubble study with and without Valsalva to assess for PFO/ASD prior to discharge. 2D ECHO performed 04/25/2023 did not reveal significant valvular disease or left atrial enlargement which would significantly increased likelihood of AFib/flutter as contribution yet this does not exclude this possibility. However, bubble study was not performed. While I cannot exclude cardioembolic source, however, CVA appearance on MRI is not highly suggestive of showering embolic phenomena which would be suggestive of atrial fibrillation/flutter as contribution. -Agree with ASA 81 mg daily indefinitely and clopidogrel 75 mg daily for the next 3 weeks. Continue atorvastatin 40 mg q.h.s. for further reduction in stroke risk with goal LDL<70. LDL was 80 at presentation. -BP appears to be fairly stable at this time although somewhat variable. Brain imaging suggests chronic small-vessel ischemic disease although patient does not carry in no diagnosis of hypertension. Monitor BP closely. Avoid excessive lowering of blood pressure this time. -Avoid AV marely blocking agents given relative bradycardia intermittently. -Once bubble study has been completed and reviewed with recommendations patient stable for discharge home today to follow up as an outpatient with me in 6 weeks. -Discussed plan of care with the patient and his who verbalized understanding and agreed with plan of care. All questions answered to their satisfaction. DVT prophylaxis. Further management per Neurology. Appreciate their involvement and recommendations. (2) Ectopic atrial rhythm: Code(s): I49.1 - Atrial premature depolarization Status: Acute Assessment and Plan: Incidentally discovered bradycardia and initial ectopic atrial rhythm. Patient is hemodynamically stable and otherwise asymptomatic in this regard. Upon review of telemetry personally, there is no evidence for high-grade AV block, prolonged pauses thus far. Mild this may possibly be consequence of acute CVA suggestive of a degree of underlying conduction system disease but no indication for pacemaker at this time. Avoid AV marely blocking agents or other medication known to slow the heart rate. 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 - (3) Complicated UTI (urinary tract infection): Code(s): N39.0 - Urinary tract infection, site not specified Status: Acute Assessment and Plan: Continue antibiotic management per primary service. He remains on IV ceftriaxone. Transition to oral regimen as appropriate. (4) Elevated blood pressure reading: Code(s): R03.0 - Elevated blood-pressure reading, without diagnosis of hypertension Stat
--- NOTE | 2023-04-27 11:39 | PM.DS ---
DS: Admitting Diagnosis Discharge Date August 27, 2022 Admitting Diagnosis CVA DS: Discharge Diagnosis Discharge Diagnosis (1) CVA (cerebral vascular accident): Code(s): I63.9 - Cerebral infarction, unspecified Status: Acute Assessment and Plan: Acute CVA New deficits on R started on 04/15 at 12pm: dysarthria and right hand weakness fine motor function POA CTA shows new, acute CVA of the left basal ganglia and guardado radiata. -admission for observation and telemetry -not candidate for thrombolytics due to timeframe and thrombectomy due to occlusion not being large vessel -CXR negative -CTA - 0% stenosis bilaterally of internal carotid arteries, new CVA -Neurology consulted - Lyle HARTMAN -Brain MRI w/wo noted -Echo ordered, pending -neuro checks Q4 -heart healthy diet - passed bedside swallow -up ad kym. -aspirin Plavix statin on discharge -Holter and possible loop for AFib evaluation (2) Neurogenic bladder: Code(s): N31.9 - Neuromuscular dysfunction of bladder, unspecified Status: Acute (3) Complicated UTI (urinary tract infection): Code(s): N39.0 - Urinary tract infection, site not specified Status: Acute Assessment and Plan: Patient has neurogenic brighter Chronic and requiring self-cath, -UA/UC ordered UA shows pyuria white blood cell 10 to 20, 4+ bacteria Start ceftriaxone IV 1 g IV daily Plan Chronic Conditions: -Neurogenic Bladder: see above -Seasonal Allergies: continue daily Claritin Full Code Heart Healthy Diet DVT prophylaxis: SCDs and Lovenox 40 mg DS: Summary Hospital Course Hospital Course: Patient admitted for CVA. Aspirin Plavix and statin on discharge. Will need to be set up with Holter monitor and possible loop recorder. Cardiology is going to follow-up patient now patient. otherwise patient is close to baseline neurologically and can be discharged. Time Spent with Patient Time attestation: Total time spent providing and/or coordinating discharge services: Exam Narrative: GENERAL: Pleasant, in no acute distress. Well-nourished. - EYES: EOMI. Anicteric. - HENT: Moist mucous membranes. - LUNGS: Clear to auscultation bilaterally, no wheezing, rhonchi, or rales. - CARDIOVASCULAR: Regular rate and rhythm. No murmur. No JVD. - ABDOMEN: Soft, non-tender and non-distended. No palpable masses. - EXTREMITIES: No edema. Peripheral pulses 2+. Non-tender. - NEUROLOGIC: No focal neurological deficits. CN II-XII grossly intact. - PSYCHIATRIC: Awake, Alert and oriented x 3. Appropriate mood and affect. - SKIN: No rashes or lesions. Warm. - LYMPH: No cervical lymphadenopathy. Discharge Plan Discharge Attending physician on discharge: Dominik Houser Consulting providers: Sindy Alvarenga; Marlon Rodriguez Discharging Clinician: Dominik Houser Patient Disposition: Home, Self-Care Activity: as tolerated Diet: as tolerated Patient Instructions: Antibiotic Form Stand Alone Forms: General Discharge Information Follow-up/Referrals: Marlon Rodriguez MD [Physician] - Larry Arguelles MD [Primary Care Provider] - Discharge Medications: New aspirin 81 mg Tablet,Delayed Release (Dr/Ec) 81 mg PO QAM 3 Days Qty: 3 0RF atorvastatin 40 mg Tablet 40 mg PO DAILY 30 Days Qty: 30 0RF clopidogrel 75 mg Tablet 75 mg PO QAM 21 Days Qty: 21 0RF cefdinir 300 mg capsule 300 mg PO Q12H Qty: 10 0RF Continued loratadine [Claritin] 10 mg Tablet 10 mg PO PRN PRN (Reason: allergies) Date of admission: 04/24/23 16:02 Primary Care Provider: Larry Arguelles Admitting Provider: Caden Coombs Attending physician on admission: Caden Coombs Condition: Stable
[2023-04-27 12:00] VITALS: PULSE 71
[2023-04-27 13:56] VITALS: BP 141/80; PULSE 68; RESP 18; TEMP 36.3; O2SAT 98
== END 2023-04-27 14:05 | disposition home or self-care (01) | DRG 65 ==
LOC: ANHED 09:24 → ANH3MEDSUR 11:43
PROVIDERS: Student in an Organized Health Care Education/Training Program; Admitting Provider Internal Medicine; Emergency Provider Emergency Medicine; PCP Family Medicine; Visit Provider Chiropractor
DX: I63.9 Cerebral infarction, unspecified (principal); I47.1 Supraventricular tachycardia; N39.0 Urinary tract infection, site not specified; R47.1 Dysarthria and anarthria; R29.703 NIHSS score 3; R53.1 Weakness; N32.3 Diverticulum of bladder; J30.1 Allergic rhinitis due to pollen; R33.9 Retention of urine, unspecified; N31.9 Neuromuscular dysfunction of bladder, unspecified; M47.816 Spondylosis without myelopathy or radiculopathy, lumbar region; Z90.49 Acquired absence of other specified parts of digestive tract
CPT/HCPCS: 36415; 70450; 70496; 70498; 70553; 71046; 80048; 80053; 80061; 81001; 83036; 84484; 85025; 85027; 85610; 85730; 87086; 87147; 87181; 87186; 92523; 92610; 93005; 93306; 93308; 96365; 96372; 96375; 97161; 97165; 99285; A9270; A9577; G0378; J0696; J1650; Q9967

== ENCOUNTER 2023-06-29 08:25 | Day surgery (SDC) | payer OTHER, SELFPAY ==
--- NOTE | 2023-06-30 10:35 | SUR.PREOP ---
CHEST HAIR CLIPPED. CHLORHEXIDINE CHEST PREP WIPE X 2 COMPLETED TO L. UPPER QUADRANT CHEST. SKIN PINK, DRY, INTACT.
[2023-06-30 10:43] VITALS: BMI 25.0
[2023-06-30 10:46] VITALS: BP 129/77; PULSE 54; RESP 14; TEMP 36.2; O2SAT 100
[2023-06-30 11:30] VITALS: BP 136/73; RESP 14; O2SAT 99
--- NOTE | 2023-06-30 11:30 | WPDHPUPDATE1 ---
History and Physical Update Update Date/Time: 06/30/23 11:30 History and Physical has been reviewed, including an updated exam of the patient. There are NO changes in the patient's condition. Risks, benefits, and alternatives have been discussed and questions answered. Patient agrees to proceed with procedure.
[2023-06-30 11:45] VITALS: BP 139/75; PULSE 57; RESP 16; O2SAT 100
--- NOTE | 2023-06-30 11:59 | W.PM.PROC2 ---
Procedure Note - Detailed Date of Procedure 06/30/23 Pre-op Diagnosis Cryptogenic stroke Post-op Diagnosis Same Procedure Performed Loop recorder implantation Surgeon Marlon Rodriguez MD Anesthesia Local (Subcutaneous lidocaine) Indications Cryptogenic stroke Findings Brief History of Present Illness: Patient is a very pleasant 73-year-old male with past medical history significant for chronic recurrent UTI otherwise healthy presented with MRI documented acute infarction involving the left basal ganglia and left caudate nucleus who underwent 30 day cardiac monitor technician which did not reveal atrial fibrillation or atrial flutter with the remaining workup otherwise unremarkable and without intracardiac shunt noted. As such, loop recorder implantation has been advised for more definitive assessment for paroxysmal atrial fibrillation and/or flutter as possible contribution to otherwise unexplained stroke After verbal and written informed consent was obtained from the patient risks, benefits, and alternatives explained in detail the patient agreed to proceed with the plan of care as outlined above. Patient was evaluated at bedside in the Chest [facility] procedure room. Patient was placed the appropriate supine position. Left anterior chest wall was prepped and draped in the usual sterile fashion. Operators in appropriate sterile garb. The left 4th intercostal space was identified and marked. Utilizing approximately 20 cc of 1% subcutaneous lidocaine the left anterior chest wall was then locally anesthetized. After local anesthesia was achieved, 2 fingerbreadths left of the sternum at the 4th intercostal space was again identified and a 1 cm incision was made with the included skin punch tool. Following this with the included introducer, a tract was made subcutaneously at a 45 degree angle from the sternum. The introducer was then inverted 180 degrees and with the included plunger the Medtronic REVEAL LINQ II loop recorder was advanced subcutaneously into position easily and without complication. The plunger was then removed followed by the introducer. Manual pressure was held for least 10 min with excellent hemostasis. The device was then interrogated and revealed excellent fidelity and measured at 1.2 mV. The Medtronic REVEAL LINQ II SN [id number] was implanted without complication. The incision was then approximated and closed using Exofin skin adhesive. The incision was then covered with a sterile dressing. Complications: None Description of Procedure After verbal and written informed consent was obtained from the patient risks, benefits, and alternatives explained in detail the patient agreed to proceed with the plan of care as outlined above. Patient was evaluated at bedside in the [facility] procedure room. Patient was placed the appropriate supine position. Left anterior chest wall was prepped and draped in the usual sterile fashion. Operators in appropriate sterile garb. The left 4th intercostal space was identified and marked. Utilizing approximately 20 cc of 1% subcutaneous lidocaine the left anterior chest wall was then locally anesthetized. After local anesthesia was achieved, 2 fingerbreadths left of the sternum at the 4th intercostal space was again identified and a 1 cm incision was made with the included skin punch tool. Following this with the included introducer, a tract was made subcutaneously at a 45 degree angle from the sternum. The introducer was then inverted 180 degrees and with the included plunger the Medtronic REVEAL LINQ II loop recorder was advanced subcutaneously into position easily and without complication. The plunger was then removed followed by the introducer. Manual pressure was held for least 10 min with excellent hemostasis. The device was then interrogated and revealed excellent fidelity and measured at 1.2 mV. The Medtronic REVEAL LINQ II SN [id number] was implanted without complication.
[2023-06-30 12:45] VITALS: BP 131/78; PULSE 53; RESP 14; TEMP 36.7; O2SAT 100
== END 2023-06-30 13:08 | disposition home or self-care (01) ==
PROVIDERS: PCP Family Medicine; Visit Provider Internal Medicine Cardiovascular Disease
PROC: (CPT 33285; principal; 2023-06-30 11:00)
DX: I63.9 Cerebral infarction, unspecified (principal); I10 Essential (primary) hypertension; R33.9 Retention of urine, unspecified; Z79.82 Long term (current) use of aspirin; Z86.73 Personal history of transient ischemic attack (TIA), and cerebral infarction without residual deficits; Z82.3 Family history of stroke; Z82.49 Family history of ischemic heart disease and other diseases of the circulatory system
CPT/HCPCS: 33285; C1764

== ENCOUNTER 2024-06-19 07:53 | Outpatient (CLI) | payer OTHER, SELFPAY ==
--- NOTE | 2024-06-19 08:11 | ECG_ITS ---
Test Date: 2024-06-19 08:23:38 Measurements Intervals [place] Rate: 61 P: 61 [place]: 169 QRS: 66 QRSD: 89 T: 55 QT: 388 QTc: 394 Interpretive Statements SINUS RHYTHM No previous ECG available for comparison Electronically Signed On 06-19-2024 09:45:47 CDT by Edgard Huffman M.D.
== END 2024-06-19 07:54 | disposition home or self-care (01) ==
PROVIDERS: PCP Family Medicine; Visit Provider Podiatrist Foot & Ankle Surgery
DX: R03.0 Elevated blood-pressure reading, without diagnosis of hypertension (principal)
CPT/HCPCS: 93005

== ENCOUNTER 2025-02-20 00:10 | Day surgery (SDC) | payer OTHER, SELFPAY ==
[2025-02-15 11:21] VITALS: BMI 23.4
--- NOTE | 2025-02-15 11:31 | PC.NURSE ---
Report to the Outpatient Waiting Room, entrance under the green pavilion located off [facility], at time __0700am on date __02/20/25 . Planned Procedure Time: _0900am .? Time changes happen often and if your time is changed the preop area will call you the afternoon before. - You and your visitor will be asked to self-screen and do not enter if you have any COVID symptoms. Please call surgeon if you need to reschedule. - A mask is optional within the hospital at this time. Patients may have NO Food or liquids from Midnight until prior to surgery. No chewing gum, candy or mints. Take only the following medications with a SIP of water on the morning of surgery: ____NONE DO NOT STOP ANY OF YOUR OTHER PRESCRIPTION MEDICATIONS PRIOR TO SURGERY EXCEPT THE FOLLOWING Hold all vitamins and supplements for 3 days per anesthesiologist. Medications to discontinue per physician ____Aspirin per Dr Ventura office to call pt Date to take last dose per Dr Ventura Please no make-up, nail pashto, hairspray, perfume, deodorant, or body powder the day of surgery.? No jewelry (including any body piercings) or valuables the day of surgery, leave them at home.? Please take a shower or bath the night before, or the morning of, surgery with an antibacterial soap.? Wear comfortable, loose fitting clothing.? - Jewelry must be removed prior to entering the operating room.? Rings and piercings that are not removed may be cut off. - The hospital will not accept responsibility for valuables.? - Please leave all valuables, including medications, at home the day of surgery. If you are going home after surgery, a licensed armored truck driver must drive you home.? - NO public transportation without another adult if you receive anesthesia. - We recommend that an adult stay with you for 24 hours following discharge. - We also recommend that you do not drive, make important decision, drink alcoholic beverages, or take any drugs that were not prescribed by your health care provider for at least 24 hours after your discharge time. Follow any additional instructions given to you from your surgeon. Telephone instructions given to __Patient and asked if any additional questions and then verbalized understanding. Patient advised to call surgeon office or pre surgery nurse liaison [phone] if any additional questions.
--- OUTSIDE RECORDS SUMMARY | 2025-02-20 00:12 | XMS_ITS | Clinical Summary ---
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 Gender Identity Not on file Sexual Orientation Not on file Plan of Treatment Health Maintenance Due Date Last Done Comments Hepatitis C 1966 DTaP, Tdap and Td Vaccines ( 1 - Tdap) 1967 Pneumococcal Vaccine: 50+ Years (1 of 1 - PCV) 1998 Zoster Vaccines (1 of 2) 1998 RSV Immunization or 60+ Years (1 - 1-dose 75+ series) 2023 COVID-19 Vaccine (3 - 2023-2 5 season) 2024 09/30/2020, 09/02/2020 Meningococcal B Vaccine Aged Out No l onger eligible based on patient's age to complete this topic Meningococcal Vaccine Aged Out No juan sarah eligible based on patient's age to complete this topic RSV Immunizations Under 20 Months Aged Out No longer eligible b ased on patient's age to complete this topic Insurance MEDICARE PART A [employer] Care Teams Precision Machinist Relationship Specialty Start Date End Date Larry Arguelles MD [address] [address] PCP - General FAMILY PRACTICE 09/30/20
--- OUTSIDE RECORDS SUMMARY | 2025-02-20 00:12 | XMS_ITS | Clinical Summary ---
Author Organization [facility] Address [address] [place] [address] Phone Care Team Providers Care Bowling Alley Operator Name Role Phone Larry Arguelles MD Primary Care Provider Parris Alvarado APN, [facility] Unavailable Maurizio BAXTER MD, Emperatriz Unavailable [phone] Nirav Longoria MD Unavailable [phone] Allergies Active Allergy Reactions Criticality Noted Date Comments Sulfa Antibiotics Rash 01/30/2016 Reaction when a child, unsure of reaction - thinks it was a rash Medications nitrofurantoin, macrocrystal-mon ohydrate, (MACROBID) 100 MG Capsule 06/23/2021 Active atorvastatin (LIPITOR) 40 MG Tablet Take 40 mg by mouth daily. Active Loratadine (CLARITIN PO) Take by mouth. Active BABY ASPIRIN PO Take by mouth. 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 Immunizations Immunization Administration Dates Next Due COVID-19, Mrna, Lnp-s, Pf, 50 mcg/0.5 mL 023 Covid-19, Mrna, Lnp-s, Bival ent, Moderna, 50 Mcg or 25 mcg dose 06/04/2022 Covid-19, Mrna, Lnp-s, Pf, 1 00 Mcg Or 50 Mcg Dose (MODERNA) 11/27/2021 Influenza Vaccine greater than 3 yrs 06/04/2015 Influenza, Seasonal, Injectable, Undefined 06/04 Pneumococcal Vaccine Adult - 23 Valent 3 Family History Medical History Relation Name Comments Stroke Father Other-comment Mother intestinal blo ckage Rheumatoid Arthritis Mother Relation Name Status Comments Father Mother Social History Tobacco Use Types Packs/Day Years Used Date Smoking Tobacco: Never Smokeless Tobacco: Never Tobacco Cessation:Counseling Given: No Alcohol Use Standard Drinks/Week Comments No 0 (1 standard drink = 0.6 oz pur e alcohol) Sexually Active Control Partners Comments Yes Female Sex and Gender Information Value Date Recorded Sex Assigned at Not on file Legal Sex Male 8:30 PM CDT Gender Identity Not on file Sexual Orientation Not on file Last Filed Vital Signs Vital Sign Reading Time Taken Comments Blood Pressure 128/82 07/02/2024 8:27 AM ICER MACHINE OPERATOR Pulse 73 07/02/2024 8:27 AM ICER MACHINE OPERATOR Temperature 36.5 C (97.7 F) 06/29/2021 9:23 AM ICER MACHINE OPERATOR Respiratory Rate 20 07/02/2024 8:27 AM ICER MACHINE OPERATOR Oxygen Saturation 98% 07/02/2024 8:27 AM ICER MACHINE OPERATOR Inhaled Oxygen Concentration - - Weight 73 kg (161 lb) 07/02/2024 8:27 AM ICER MACHINE OPERATOR Height 176.5 cm (5' 9.5) 07/02/2024 8:27 AM ICER MACHINE OPERATOR Body Mass Index 23.43 07/02/2024 8:27 AM ICER MACHINE OPERATOR Plan of Treatment Upcoming Encounters Date Type Department Care Team (Late st Contact Info) Description 07/01/2025 8:30 AM ICER MACHINE OPERATOR Office Visit [facility] [address] [place] [id number] Nirav Longoria MD [address] [address] Health Maintenance Due Date Last Done Comments Hepatitis C Virus (HCV) Screening 1950 TdaP Immunization 1950 Zoster Immunization (1 of 2) 1998 Pneumococcal Immunization (50+ years) (2 of 2 - PCV) 03/30/2014 03/30/2013 SARS-COV-2 Immunization ( season) 2024 06/22/2024, 05/13/2023, 06/04/2022, Additional history exists Influenza Immunization (Season Ended) 2025 06/04/2015, 06/04/2015 Pneumococcal Immunization Combined Discontinued 03/30/2013 Respiratory Syncytial Virus (RSV) Immunization (Adult) Completed 09/02/2023 Hepatitis B Immunization Aged Out No longer eligible based on patient's age to complete this topic Human Papillomavirus (HPV) Immunization Aged Out No longer eligible based on patient's age to complete this topic Meningococcal Immunization (ACWY) Aged Out No longer eligible based on patient's age to complete this topic Rotavirus Immunization Aged Out No lo nger eligible based on patient's age to complete this topic Insurance MEDICARE [facility] Advance Directives Documents on File Type Date Recorded Patient Auto Glass Technician Expl anation Other Advance Directive 07/14/2022 1:02 PM PSA LAB -06.19.2022 Other Advance Directive 11/19/2021 7:56 AM Cath Order Care Teams Bowling Alley Operator Relationship Specialty Start Date End Date Larry Arguelles MD [address] [address] PCP - General Family Medicine 01/30/16 Parris Alvarado, DRAFTING CLERK, CERTIFIED LACTATION COUNSELOR [address] [address] Nurse Practitioner Advanced Practice Nurse 01/30/16 Emperatriz Steven III, MD [address] [place] [address] Consulting Physician Urology 07/12/22 Nirav Longoria MD [address] [address] Consulting Physician Urology 06/27/24
--- NOTE | 2025-02-20 06:54 | WPDHPUPDATE1 ---
History and Physical Update Update Date/Time: 02/20/25 06:54 Patient seen and examined in pre-operative holding area. No interval change in medical history or symptoms. Patient recalls previous discussion of benefits and alternatives to procedure. Continues to desire to proceed with left small and ring finger fasciectomy . Reviewed procedure, post-op expectations and risks including but not limited to bleeding, infection, injury to tendon/nerve/vessel, decreased hand function, stiffness, RSD, no change or worsening of symptoms, incomplete release, recurence. I discussed the possible use of assistants and their participation in the case. Patient stated understanding and signed the consent form wishing to proceed.
--- NOTE | 2025-02-20 06:54 | W.PM.PROC2 ---
Procedure Note - Detailed Date of Procedure 02/20/25 Pre-op Diagnosis Dupuytren Contracture Lt sm and ring finger Post-op Diagnosis Same Procedure Performed left small and ring finger fasciectomy Surgeon Sandra Ventura MD Auto Crane Driver cosmo stephenson pa-c Anesthesia MAC Description of Procedure INFORMED CONSENT: The patient was seen and examined and marked in the pre-op area.? The patient signed the consent form. PROCEDURE IN DETAIL:The patient taken back to OR on the stretcher in supine position. Time out performed with anesthesia, surgeon and staff agreeing on patient's name site and surgery to be performed SCDs were placed on the lower extremities and inflated. A tourniquet was placed on {left} upper extremity and antibiotics given IV After anesthesia administered sedation I injected {10}cc 1%lido and 0.5% marcaine plain at the operative site and for medial and ulnar block at the wrist The?{left upper extremity}?was prepped and draped in sterile fashion the??{left upper extremity} was? exsanguinated with Esmarch bandage and tourniquet inflated to 250mmHg I proceeded with making longitudinal incision of the central cord to ring finger from palm proximal to DPC going distally and crossing flexion creases obliquely through skin and dermis with 15 blade. I elevated skin flaps and used littler scissors to dissect around the cord proximally near its origin. I transected the cord and proceeded with anterograde dissection of the cord until I achieve full extesnion of the mpj and pipjoint to the ring finger. Next I made an incision over the cord branching to the small finger and extneding past mpj flexion crease through skin and dermis with 15 blade. I identified origin of cord to the small finger proximally and transected it then proceeded with naterograde dissection ttil the mpj and pipj were easily in ful extension. The neurovascular bundles were identified and protected to both digits throughout the procedure. I irrigated with normal saline and closed with 4-0 chromic A dressing of xeroform, 4x4, azucena, and an ulnar gutter splint was applied for patient safety, security, and comfort and secured with an amber bandage after the tourniquet was let down noting the hand was warm and well perfused. The patient was then awaken from anesthesia and transferred to the recovery room in stable condition.? Complications - none EBL- 0cc Disposition - home in stable conditions cosmo stephenson pa-c was essential for positioining, retraction, closure and dressing placement [facility] Billing Surgery - Charge Forward: Surgery Billing ([id number] same for cosmo adding )
[2025-02-20 07:25] VITALS: BP 147/62; PULSE 59; RESP 18; TEMP 36.6; O2SAT 98
[2025-02-20] MEDS: LACTATED RINGERS 1,000 ML 30 ML IV CONT (07:35)
--- NOTE | 2025-02-20 07:46 | P.PNAN_ITS ---
Anes - Initial Pre Proc Eval Procedure: Operation Date: 02/20/25 09:00 Proposed Procedures p Left Small and Ring Finger Fasciectomy - Sandra Ventura MD Date/Time: 02/20/25 07:46 Surgeon: Sandra Ventura MD Pre Op Diagnosis: Dupuytren Contracture Lt sm and ring finger Patient Data Age: 74 Gender: M Height: 1.77 m Weight: 72 kg Last Vital Signs Temp 36.6 C 02/20/25 07:25 Pulse 59 L 02/20/25 07:25 Resp 18 02/20/25 07:25 BP 147/62 H 02/20/25 07:25 Pulse Ox 98 02/20/25 07:25 O2 Del Method Room Air 02/20/25 07:25 Allergies Allergy/AdvReac Type Severity Reaction Status Date / Time Sulfa (Sulfonamide Allergy Unknown Rash Verified 02/20/25 07:24 Antibiotics) promethazine (From Phenergan) Allergy Other Verified 02/20/25 07:24 Home Medications ?Medication ?Instructions ?Recorded ?Confirmed ?Type aspirin 81 mg tablet,delayed 81 mg PO QAM 3 days #3 tabs 04/27/23 02/20/25 Rx release atorvastatin 40 mg tablet 40 mg PO DAILY #90 tabs 11/18/24 02/20/25 Rx Patient hx anesthesia problems: none Family hx anesthesia problems: none Results Review: All pre-operative results and documents have been reviewed as part of the pre- operative evaluation. [facility] Past Medical History Medical History Dysuria Atrial tachycardia Chronic UTI Rhinorrhea Petechial hemorrhage Infarction of left basal ganglia BMI 26.0-26.9,adult Acute CVA (cerebrovascular accident) Neurogenic bladder Recurrent urinary tract infection Urinary retention Colon polyp BMI 25.0-25.9,adult Memory loss Lumbar spondylosis Surgical History Surgical History History of loop recorder Hx of appendectomy Family History Family History Mother Bowel obstruction Possibly due to mass, in 50's-60's. Arthritis Father Cerebrovascular accident Hypertension Hyperlipemia Sibling Cerebrovascular accident Heart disease Other No pertinent past medical history Social History Social History Social History: Lives independently with at home. 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 Informed Consent: The patient's anesthetic plan and its attendant risks and benefits were discussed with the patient/family/POA. Questions were solicited and answers provided to the satisfaction of the patient/family/POA.
[2025-02-20] MEDS: BUPivacaine HCL 0.5% 10 ML AMP INFILTRATE (09:10)
[2025-02-20] MEDS: LIDOCAINE 1% LOCAL INJ 10 ML VIAL INFILTRATE (09:10)
[2025-02-20] MEDS: ceFAZolin 2 GM/D5W 50 ML 2 GM/50 ML BAG IVPB (09:10)
--- NOTE | 2025-02-20 09:19 | S_PTH ---
PATIENT: Davis Tse LOC: [facility] U#:[id number] AGE/SX: 74/M ROOM: RE02/20/[address]: Sandra Ventura MD : 1950 BED: DIS: 02/20/2025 SPEC #: [id number] RECD: 02/20/25 13:21 STATUS: ELFEOG RETiffanie #: [id number] THOMAS: 02/20/25 09:[address]: Sandra Ventura DEPT: [facility] Surgical RECD BY: Christi Haile ENTERED: 02/20/25 13:22 SP TYPE: Surgical OTHR DR: Larry Arguelles MD Tissues: A - Soft Tissue B - Soft Tissue Procedures: Hematoxylin and Eosin Stain Gross and Microscopic Level 3
[2025-02-20 09:49] VITALS: BP 101/60; PULSE 55; RESP 16; O2SAT 98
[2025-02-20 10:20] VITALS: BP 127/76; PULSE 54; RESP 18
[2025-02-20] MEDS: ACETAMINOPHEN 500 MG TABLET 1000 MG PO (10:24)
[2025-02-20 10:49] VITALS: BP 141/67; PULSE 53; RESP 16
== END 2025-02-20 11:00 | disposition home or self-care (01) ==
PROVIDERS: PCP Family Medicine; Visit Provider Plastic Surgery
PROC: (CPT 26045; principal; 2025-02-20 09:00)
DX: M72.0 Palmar fascial fibromatosis [Dupuytren] (principal)
CPT/HCPCS: 26123; 26125; 88304; A9270; J0690; J2003; J2250; J2704; J3010; J7120